=== PATIENT | female | born 1990 | race African-American/Black ===

== ENCOUNTER 2019-09-11 22:22 | Emergency (ER) | payer OTHER ==
[~2019-09-11] VITALS: Ht 172.7 cm; Wt 108.9 kg
[2019-09-11 23:08] LABS: URINE BILIRUBIN NEGATIVE (Negative); URINE BLOOD NEGATIVE (Negative); URINE CLARITY CLEAR; URINE COLOR YELLOW; URINE GLUCOSE-RANDOM* NEGATIVE (Negative); URINE KETONES NEGATIVE (Negative); URINE LEUKOCYTES-REFLEX 1+ (Negative); URINE NITRITE-REFLEX NEGATIVE (Negative); URINE PROTEIN (DIPSTICK) NEGATIVE (Negative); URINE UROBILINOGEN 0.2 E.U./dl (0.2-1.0)
[2019-09-11 23:16] LABS: CASTS None Seen /LPF (None Seen); CRYSTALS None Seen /LPF (None Seen); SQUAMOUS 0-3 Few /LPF (0-3)
[2019-09-11 23:17] LABS: BACTERIA-REFLEX 1-9 Few /HPF (None Seen); URINE RBC None Seen /HPF (0-2); URINE WBC-REFLEX 0-5 Rare /HPF (0-5)
[2019-09-12 00:21] VITALS: BP 139/88
== END 2019-09-12 17:55 | disposition home or self-care (01) ==
LOC: ER 22:22 → EDBD 22:22 → ER 09-12 17:55
PROVIDERS: Emergency Medicine
DX: K59.00 Constipation, unspecified (principal); R62.50 Unspecified lack of expected normal physiological development in childhood; E11.9 Type 2 diabetes mellitus without complications

== ENCOUNTER 2019-09-16 00:50 | Emergency (ER) | payer OTHER ==
[~2019-09-16] VITALS: Ht 170.2 cm; Wt 111.1 kg
[2019-09-16] MEDS ORDERED: NOHOMEMEDICATIONS (00:53)
[2019-09-16 01:54] VITALS: BP 143/93
== END 2019-09-16 01:56 | disposition home or self-care (01) ==
LOC: ER 00:50
DX: R10.84 Generalized abdominal pain (principal); R09.89 Other specified symptoms and signs involving the circulatory and respiratory systems; R11.10 Vomiting, unspecified; E11.9 Type 2 diabetes mellitus without complications

== ENCOUNTER 2019-09-28 13:08 | Emergency (ER) | payer OTHER ==
[~2019-09-28 13:08] MED LIST: NOHOMEMEDICATIONS
[2019-09-28 13:09] VITALS: BP 159/104
== END 2019-09-28 15:49 | disposition home or self-care (01) ==
LOC: ER 13:08
DX: Z91.83 Wandering in diseases classified elsewhere (principal); R10.13 Epigastric pain; R11.10 Vomiting, unspecified; E11.9 Type 2 diabetes mellitus without complications; F84.0 Autistic disorder